=== PATIENT | male | born 1990 | race African-American/Black ===

== ENCOUNTER 2019-07-25 17:41 | Emergency (ER) | payer OTHER ==
[~2019-07-25] VITALS: Ht 190.5 cm; Wt 117.9 kg
[2019-07-25] MEDS ORDERED: AMOXICILLIN500 M1 PO (17:48)
[2019-07-25 18:35] VITALS: BP 115/65
== END 2019-07-25 18:35 | disposition home or self-care (01) ==
LOC: ER 17:41
DX: J02.9 Acute pharyngitis, unspecified (principal)

== ENCOUNTER 2019-10-06 19:53 | Emergency (ER) | payer OTHER ==
[~2019-10-06] VITALS: Ht 190.5 cm; Wt 117.9 kg
[~2019-10-06 19:53] MED LIST: AMOXICILLIN500 M1 PO
[2019-10-06] MEDS ORDERED: PENICILLIN VK500 M1 PO (20:29)
[2019-10-06 20:43] VITALS: BP 136/74
== END 2019-10-06 20:43 | disposition home or self-care (01) ==
LOC: ER 19:53
DX: K02.9 Dental caries, unspecified (principal)

== ENCOUNTER 2020-08-20 16:14 | Emergency (ER) | payer OTHER ==
[~2020-08-20] VITALS: Ht 190.5 cm; Wt 120.2 kg
[2020-08-20 16:14] VITALS: BP 136/92
[~2020-08-20 16:14] MED LIST changes: +PENICILLIN VK500 M1 PO
[2020-08-20] MEDS ORDERED: AMOXICILLIN 50500 MG PO (16:36)
[2020-08-20] MEDS ORDERED: PERIDEX 0.12%473 M1 BUCCAL (16:36)
== END 2020-08-20 16:45 | disposition home or self-care (01) ==
LOC: ER 16:14
DX: K02.7 Dental root caries (principal)

== ENCOUNTER 2021-08-31 11:22 | Emergency (ER) | payer OTHER ==
[~2021-08-31] VITALS: Ht 193 cm; Wt 124.7 kg
[~2021-08-31 11:22] MED LIST changes: +AMOXICILLIN 50500 MG PO; +PERIDEX 0.12%473 M1 BUCCAL
[2021-08-31 11:24] VITALS: BP 136/83
[2021-08-31] MEDS ORDERED: FLEXERIL PO (12:55)
[2021-08-31] MEDS ORDERED: IBUPROFEN 800800 MG PO (12:55)
== END 2021-08-31 12:57 | disposition home or self-care (01) ==
LOC: ER 11:22
DX: M70.71 Other bursitis of hip, right hip (principal); M79.604 Pain in right leg; F17.210 Nicotine dependence, cigarettes, uncomplicated; X50.0XXA Overexertion from strenuous movement or load, initial encounter; Y93.89 Activity, other specified; Y92.69 Other specified industrial and construction area as the place of occurrence of the external cause; Y99.9 Unspecified external cause status

== ENCOUNTER 2021-10-14 12:10 | Emergency (ER) | payer OTHER ==
[~2021-10-14] VITALS: Ht 193 cm; Wt 124.7 kg
[~2021-10-14 12:10] MED LIST changes: +FLEXERIL PO; +IBUPROFEN 800800 MG PO
[2021-10-14 12:16] VITALS: BP 143/87
[2021-10-14] MEDS ORDERED: AUGMENTIN 875-1 EACH PO (13:01)
[2021-10-14] MEDS ORDERED: IBUPROFEN 600600 M1 PO (13:02)
== END 2021-10-14 13:03 | disposition home or self-care (01) ==
LOC: ER 12:10
DX: K02.9 Dental caries, unspecified (principal); F17.210 Nicotine dependence, cigarettes, uncomplicated

== ENCOUNTER 2021-10-28 15:10 | Emergency (ER) | payer OTHER ==
[~2021-10-28] VITALS: Ht 193 cm; Wt 127.0 kg
[~2021-10-28 15:10] MED LIST changes: +AUGMENTIN 875-1 EACH PO; +IBUPROFEN 600600 M1 PO
[2021-10-28 15:11] VITALS: BP 119/72
== END 2021-10-28 16:55 | disposition home or self-care (01) ==
LOC: ER 15:10
DX: M54.59 Other low back pain (principal); F17.210 Nicotine dependence, cigarettes, uncomplicated